=== PATIENT | male | born 2000 | race Two or more races ===

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

== ENCOUNTER 2022-11-15 14:04 | Emergency (ER) | payer OTHER ==
[~2022-11-15] VITALS: Ht 167.6 cm; Wt 68.2 kg
[2022-11-15 14:53] VITALS: BP 141/76
[2022-11-15] MEDS ORDERED: IBUP600T27 PO (15:15)
[2022-11-15] MEDS ORDERED: IBUPROFEN 800 MG TAB PO ONE (15:15)
== END 2022-11-15 15:22 | disposition home or self-care (01) ==
LOC: ER 14:04
DX: S00.03XA Contusion of scalp, initial encounter (principal); W50.1XXA Accidental kick by another person, initial encounter; Y93.89 Activity, other specified; Y92.89 Other specified places as the place of occurrence of the external cause; Y99.8 Other external cause status
CPT/HCPCS: 70450